=== PATIENT | female | born 1940 | race American Indian/Alaskan Native ===

== ENCOUNTER 2018-07-01 07:22 | Day surgery (SDC) | payer MEDICARE ==
[2018-07-01] MEDS ORDERED: ECOTRIN PO ONE (08:20)
[2018-07-01] MEDS ORDERED: NACL 0.9% 500 ML 500 ML IV SCH (09:00)
== END 2018-07-01 08:35 | disposition home or self-care (01) ==
LOC: CATHLABREC 07:22
PROVIDERS: ATTEND Internal Medicine Cardiovascular Disease
DX: R94.39 Abnormal result of other cardiovascular function study (principal); I25.10 Atherosclerotic heart disease of native coronary artery without angina pectoris; Z79.899 Other long term (current) drug therapy; Z88.2 Allergy status to sulfonamides; Z91.09 Other allergy status, other than to drugs and biological substances; Z98.890 Other specified postprocedural states; Z53.8 Procedure and treatment not carried out for other reasons
CPT/HCPCS: J7040

== ENCOUNTER 2018-07-04 07:02 | Day surgery (SDC) | payer MEDICARE ==
[2018-07-04] MEDS ORDERED: ECOTRIN PO ONE (08:40)
[2018-07-04 08:56] LABS: Basophils % (Auto) 0.5 % (0.0-1.8); Eosinophils # (Auto) 0.2 K/mm3 (0.0-0.4); Eosinophils % (Auto) 5.7 % (0.0-4.3); Hematocrit 37.6 % (30.3-42.9); Hemoglobin 12.1 gm/dl (10.1-14.3); Lymphocytes # (Auto) 1.5 K/mm3 (1.2-5.4); Lymphocytes % (Auto) 39.4 % (13.4-35.0); Mean Corpuscular HGB Conc 32 % (30-34); Mean Corpuscular Hemoglobin 27 pg (28-32); Mean Corpuscular Volume 85 fl (79-97); Monocytes # (Auto) 0.5 K/mm3 (0.0-0.8); Monocytes % (Auto) 12.7 % (0.0-7.3); Platelet Count 140 K/mm3 (140-440); Red Blood Count 4.43 M/mm3 (3.65-5.03); Red Cell Distribution Width 14.4 % (13.2-15.2)
[2018-07-04] MEDS ORDERED: NACL 0.9% 500 ML 500 ML IV SCH (09:00)
[2018-07-04 09:09] LABS: INR 1.03 (0.87-1.13)
[2018-07-04 09:10] LABS: Partial Thromboplastin Time 23.7 Sec. (24.2-36.6)
[2018-07-04] MEDS ORDERED: VERSED ONE (11:10)
[2018-07-04] MEDS ORDERED: HEPARIN/NS 5000 UNIT/500ML(CATH LAB) 1,000 ML IR ONE (11:10)
[2018-07-04] MEDS ORDERED: HEPARIN 10,000 UNITS/10 ML ONE (11:10)
[2018-07-04] MEDS ORDERED: NITROGLYCERIN SYRINGE 3 ML ONE (11:11)
[2018-07-04] MEDS ORDERED: XYLOCAINE 2% INFILTRATI ONE (11:11)
[2018-07-04] MEDS ORDERED: CALAN ONE (11:11)
[2018-07-04] MEDS ORDERED: SUBLIMAZE ONE (11:11)
--- NOTE | 2018-07-04 12:23 | Discharge Summary ---
Short Stay Discharge Plan Activity: advance as tolerated Weight Bearing Status: Full Weight Bearing Diet: low fat, low cholesterol, low salt, diabetic Wound: keep clean and dry Special Instructions: no heavy lifting (3 days) Additional Instructions: OK TO RESUME XARELTO TOMORROW. Follow up with: TRINY TABOR MD [Primary Care Provider] - 7 Days ADAMS LÓPEZ MD [Staff Physician] - 7 Days
[2018-07-04] MEDS ORDERED: NACL 0.9% 1000 ML 1,000 ML IV SCH (13:00)
--- NOTE | 2018-07-04 13:02 | Cardiac Catherization Report ---
CARDIAC CATHETERIZATION REASON FOR PROCEDURE: Abnormal thallium stress test, preoperative colon surgery. PROCEDURES: 1. Left heart catheterization. 2. Selective left and right coronary angiography. 3. Left ventricle angiography. 4. Sedation time, start 11:41 and 11:58. DESCRIPTION OF PROCEDURE: The patient was prepped and draped in a sterile fashion after informed consent. The right radial cath site was prepped and draped after a negative Carl's test. The right radial artery was entered using Seldinger technique followed by placement of a 6-Bul[place] hydrophilic sheath. Routine radial cocktail was administered via the sheath. Selective left and right coronary angiography was performed. The right coronary artery was cannulated using a #3.5 left Dash catheter. A #3.0 left Dash was used for the left coronary cannulation and angiography. The pigtail catheter was used for left ventricle angiography. The catheters were removed, sheath removed, hemostasis achieved using a TR band. The patient was returned to the postprocedure unit in stable condition. There were no complications. FINDINGS: HEMODYNAMICS: Left ventricular end diastolic pressure was 25-30, following coronary angiography. Ascending aortic pressure was 188/83. There was no significant pressure gradient on pullback across the aortic valve. CORONARY ANGIOGRAPHY: There was moderate severity coronary calcification, chiefly involving the left coronary vessels. The left main coronary artery was free of significant disease. The left anterior descending artery and its diagonal branches contained mild irregularities. There was mild luminal narrowing of the mid LAD. The circumflex artery and its obtuse marginal branches were free of significant disease. The right coronary artery was dominant. This vessel was completely occluded in its mid segment. This was a long segment of a chronic total occlusion. There was faint reconstitution of the distal right coronary artery by right to right collaterals. The left ventricle was mildly to moderately dilated. There was moderate left ventricular systolic dysfunction with left ventricular ejection fraction estimated at 35-40%. There was hypo to akinesis of the basal inferior wall. CONCLUSION: 1. 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 2. Ischemic cardiomyopathy, moderate severity, left ventricular systolic dysfunction, ejection fraction estimated at 35-40%. RECOMMENDATION: Risk factor modification and medical therapy. JOB# [id number] CA/NTS
[2018-07-04 15:37] VITALS: BP 137/73
== END 2018-07-04 16:25 | disposition home or self-care (01) ==
LOC: CATHLABREC 07:02
PROVIDERS: ATTEND Internal Medicine Cardiovascular Disease
DX: I25.10 Atherosclerotic heart disease of native coronary artery without angina pectoris (principal); I25.5 Ischemic cardiomyopathy; E78.00 Pure hypercholesterolemia, unspecified; I48.91 Unspecified atrial fibrillation; I10 Essential (primary) hypertension; K21.9 Gastro-esophageal reflux disease without esophagitis; M06.9 Rheumatoid arthritis, unspecified; Z79.01 Long term (current) use of anticoagulants; Z88.2 Allergy status to sulfonamides; Z79.899 Other long term (current) drug therapy; Z79.4 Long term (current) use of insulin; Z88.8 Allergy status to other drugs, medicaments and biological substances; Z98.890 Other specified postprocedural states
CPT/HCPCS: 36415; 80048; 82962; 85025; 85610; 85730; 93005; 93010; 93458; 99156; 99157; C1894; J1644; J2250; J3010; J7040; Q9967